=== PATIENT | male | born 1980 | race Two or more races ===

== ENCOUNTER 2025-01-19 14:01 | Emergency (ER) | payer OTHER ==
[~2025-01-19] VITALS: Ht 175.3 cm; Wt 72.7 kg
[2025-01-19 18:20] VITALS: BP 135/94; PULSE 70; RESP 17; TEMP 98.4; O2SAT 98
[2025-01-19] MEDS ORDERED: CLIN1CAP70 PO (18:34)
[2025-01-19] MEDS ORDERED: ACET500T58 PO (18:34)
--- NOTE | 2025-01-19 18:34 | ED.PDOC ---
HPI Comments 44 year old male presents to ER with complaints of laceration to right side of jaw x 1 day. Patient states he was attempting to step up onto a chair when the chair moved causing him to fall forward and hit the right side of his jaw against the leg of the chair and sustained laceration right side of jaw at 1 pm prior to arrival to ER. Denies head injury/LOC and denies any current pain. Patient presents to ER ambulatory on arrival, alert and oriented x4, with steady gait, in no distress and reports he is unsure when his last tetanus shot was. Denies headache, neck pain, numbness/tingling, shortness of breath or any further symptoms/complaints Chief Complaint: Laceration Time Seen by MD: 18:05 Primary Care Provider: UNKNOWN Reviewed Notes: Nurses Notes, Medications, Allergies Allergies: Coded Allergies: NO KNOWN ALLERGIES (Unverified , 01/19/25) Home Meds Active Scripts Acetaminophen (Acetaminophen) 500 Mg Tab, 500 MG PO Q4HPRN, #30 TAB 0 Refills Prov:ANGELY APARICIO 01/19/25 Clindamycin Hcl (Clindamycin Hcl) 300 Mg Cap, 300 MG PO QID for 7 Days, #28 CAP 0 Refills Prov:ANGELY APARICIO 01/19/25 Information Source: Patient Mode of Arrival: Ambulatory Complexity: Simple Last Tetanus: Unknown Laceration Length (cm): 5 Skin Type: Linear Past Medical History PAST MEDICAL HISTORY: CVA Surgical History: CABG Family History Family History: Unknown Social History Smoker: Non-Smoker Alcohol: Occasionally Drugs: Denies Drug Use Lives In: Home Constitutional: denies: chills, diaphoresis, fatigue, fever, malaise, sweats, weakness, others EENTM: reports: others (As stated in HPI) Respiratory: denies: cough, hemoptysis, orthopnea, SOB at rest, shortness of breath, SOB with excertion, stridor, wheezing, others Cardiovascular: denies: chest pain, dizzy spells, diaphoresis, Dyspnea on exertion, edema, irregular heart beat, left arm pain, lightheadedness, palpitations, PND, syncope, others Gastrointestinal: denies: abdomen distended, abdominal pain, blood streaked bowels, constipated, diarrhea, dysphagia, difficulty swallowing, hematemesis, melena, nausea, poor appetite, poor fluid intake, rectal bleeding, rectal pain, vomiting, others Genitourinary: denies: burning, dysuria, flank pain, frequency, hematuria, incontinence, penile discharge, penile sore, pain, testicle pain, testicle swelling, urgency, others Neurological: denies: dizziness, fainting, headache, left sided numbness, left sided weakness, numbness, paresthesia, pre-existing deficit, right sided numbness, right sided weakness, seizure, speech problems, tingling, tremors, weakness, others Musculoskeletal: denies: back pain, gout, joint pain, joint swelling, muscle pain, muscle stiffness, neck pain, others Integumetry: denies: bruises, change in color, change in hair/nails, dryness, laceration, lesions, lumps, rash, wounds, others Allergic/Immunocompromised: denies: Difficulty Healing, Frequent Infections, Hives, Itching, others Hematologic/Lymphatic: denies: anemia, blood clots, easy bleeding, easy bruising, swollen glands, others Endocrine: denies: excessive hunger, excessive sweating, excessive thirst, excessive urination, flushing, intolerance to cold, intolerance to heat, unexplained weight gain, unexplained weight loss, others Psychiatric: denies: anxiety, bipolar disorder, depression, hopeless, panic disorder, schizophrenia, sleepless, suicidal, others Physical Exam General Appearance: No Apparent Distress HEENT: Normal ENT Inspection, PERRL/EOMI, Pharynx Normal, TMs Normal, Other (6 cm laceration noted to right lower mandible with bleeding controlled. Slight TTP/swelling/erythema localized to wound edges. No foreign body/deformity/further skin changes noted. Patient able to open/close mouth without difficulty/pain) Neck: Full Range of Motion, Non-Tender, Normal Respiratory: Chest Non-Tender, Lungs Clear, No Accessory Muscle Use, No Respiratory Distress, Normal Breath Sounds Cardiovascular: No Murmur, No Gallop, Regular Rate/Rhythm Breast Exam: Deferred Gastrointestinal: NOT DONE Genitalia: Deferred Pelvic: Deferred Rectal: Deferred Extremities: Normal capillary refill, Normal range of motion Neurologic: Alert, director of catering II-XII nml as Tested, No Motor Deficits, Normal Affect, Normal Mood, No Sensory Deficits Cerebellar Function: Normal Reflexes: Normal Skin: Dry, Warm Lymphatic: No Adenopathy Was a procedure done? Was a procedure done?: Yes Sedation Sedation?: No Laceration Repair : Location Right lower mandible Length 6 cm Anesthetic: Lidocaine (1%), Without epi Laceration Repair Prep: Saline (and peroxide), by Irrigation (heavily irrigated without any signs of foreign body) Laceration Repair Wound Comple: epidermis/dermis repair Laceration Repair: Number of sutures (7 placed - patient tolerated well without any complication), Size (4-0), Nylon, Simple, Non-adherent gauze Informed consent obtained: Yes Risks, benefits, and alternati: Yes Differential diagnosis Generic Laceration: Fracture, Retained Foriegn Body, Neurovascular Injury, Avulsion Differential Diagnosis: Closed Head Injury X-Ray, Labs, Meds, VS Vital Signs Date Time Temp Pulse Resp B/P (MAP) Pulse Ox O2 Delivery O2 Flow Rate FiO2 01/19/25 19:32 70 17 98 Room Air 01/19/25 18:20 98.4 70 17 135/94 (108) 98 98.4 01/19/25 18:20 70 17 98 Room Air* 0 21 01/19/25 14:40 98.4 70 17 135/94 (108) 98 98.4 Current Medications Medications (Trade) Dose Ordered Sig/Sebastián Route Start Time Stop Time Status Last Admin Diphtheria/ Tetanus/Acell Pertussis (Boostrix T-Dap) 0.5 ml ONCE ONCE IM 01/19/25 18:30 01/19/25 18:31 DC 01/19/25 19:54 Ceftriaxone Sodium (Rocephin) 1,000 mg ONCE ONCE IM 01/19/25 18:30 01/19/25 18:31 DC 01/19/25 19:54 Lidocaine HCl (Xylocaine 1%) 2.1 ml ONCE ONCE IJ 01/19/25 19:45 01/19/25 19:46 DC 01/19/25 19:54 PATIENT: JAN CONWAYT: [id number] UNIT: [id number] : 1980 LOC: ER ROOM / BED: / AGE / SEX: 44 / M ADM STATUS: REG ER SERVICE 052 ORDERING PHYSICIAN: ANGELY APARICIO PROCEDURE(s): FACE2 - FACIAL BONES LIMITED REASON: right sided jaw pain/laceration ORDER NUMBER(s): [id number], ACCESSION NUMBER(s): [id number] EXAM: XY FACIAL BONES LIMITED CLINICAL INDICATION: right sided jaw pain/laceration TECHNIQUE: XY FACIAL BONES LIMITED Comparison: None FINDINGS/IMPRESSION: There is no evidence of acute fracture or dislocation. The visualized joint space is well maintained. The alignment is anatomical. There is no radiopaque foreign body. ATED BY: CHARMAINE PAGE MD DICTATED DATE/TIME: 01/19/251935 SIGNED BY: CHARMAINE PAGE MD SIGNED DATE/TIME: 01/19/251935 CC: Patient's facial bones x-ray reviewed Rocephin 1 g IM ordered Tdap 0.5 mL IM ordered Wound cleaning performed at bedside Wound care/cleaning discussed and advised Advised to follow up in two days for wound check Advised to follow up in 7 days for removal of sutures Advised to follow up with PCP in 1-2 days Patient alert and oriented x4 prior to discharge. Patient verbalized understanding and agreeable with current plan of care Advised to return to ER immediately if symptoms worsen Images Reviewed?: Images reviewed and evaluated by me Time of 1ST Reevaluation: 18:32 Reevaluation 1ST: N/A Time of 2ND Reevaluation: 19:58 Reevaluation 2ND: Improved Patient Education/Counseling: Diagnosis, Treatment, Prognosis, Need For Follow Up Family Education/Counseling: No Family Present Departure 1 Departure Time of Disposition: 20:00 Impression: Primary Impression: Laceration of jaw Qualified Codes: S01.81XA - Laceration without foreign body of other part of head, initial encounter Disposition: HOME / SELF CARE / HOMELESS Condition: Stable e-Prescriptions Acetaminophen (Acetaminophen) 500 Mg Tab 500 MG PO Q4HPRN, #30 TAB 0 Refills Prov: ANGELY APARICIO 01/19/25 Clindamycin Hcl (Clindamycin Hcl) 300 Mg Cap 300 MG PO QID for 7 Days, #28 CAP 0 Refills Prov: ANGELY APARICIO 01/19/25 Discharged With: Self Critical Care Note Critical Care Time?: No Stability Stability form required: No Heart Score Heart Score: Heart Score Response (Comments) Value History N/A 0 EKG N/A 0 Age N/A 0 Risk Factors N/A 0 Troponin N/A 0 Total 0 ANGELY APARICIO January 19, 2025 18:34
[2025-01-19 19:32] VITALS: PULSE 70; RESP 17; O2SAT 98
--- NOTE | 2025-01-19 19:39 | DVH ---
EXAM: XY FACIAL BONES LIMITED CLINICAL INDICATION: right sided jaw pain/laceration TECHNIQUE: XY FACIAL BONES LIMITED Comparison: None FINDINGS/IMPRESSION: There is no evidence of acute fracture or dislocation. The visualized joint space is well maintained. The alignment is anatomical. There is no radiopaque foreign body.
[2025-01-19] MEDS: LIDOCAINE 1% HCL (LOCAL ANESTH.) INJ 20ML MDV IJ ONE (19:54)
[2025-01-19] MEDS: TETANUS-DIPTH-ACEL PERTUSSIS 0.5ML SYR Tdap IM ONE (19:54)
[2025-01-19] MEDS: cefTRIAXone SOD 1,000 MG VL IM ONE (19:54)
== END 2025-01-19 20:14 | disposition home or self-care (01) ==
LOC: ER 14:05
DX: S01.81XA Laceration without foreign body of other part of head, initial encounter (principal); Z95.1 Presence of aortocoronary bypass graft; W07.XXXA Fall from chair, initial encounter; Y93.89 Activity, other specified; Y92.89 Other specified places as the place of occurrence of the external cause; Y99.8 Other external cause status
CPT/HCPCS: 12014; 70140; 90471; 90715; 96372; 99284; J0696; J2003

== ENCOUNTER 2025-02-11 05:48 | Emergency (ER) | payer OTHER ==
[~2025-02-11] VITALS: Ht 175.3 cm; Wt 100.0 kg
[~2025-02-11 05:48] MED LIST: ACET500T58 PO; CLIN1CAP70 PO
--- NOTE | 2025-02-11 07:10 | ED.PDOC ---
History of Present Illness HPI Comments This is a 44 year old male presenting to the ED with chief complaint of suture removal. Patient reports that he was seen on 01/19/25 for a laceration to his right jaw, having 7 sutures placed and was advised to return to have them removed. Patient denies any discharge, bleeding, or any further concerns. Chief Complaint: Suture Removal Time Seen by MD: 07:08 Primary Care Provider: UNKNOWN Reviewed Notes: Nurses Notes, Medications, Allergies Allergies: Coded Allergies: NO KNOWN ALLERGIES (Unverified , 01/19/25) Home Meds Active Scripts Acetaminophen (Acetaminophen) 500 Mg Tab, 500 MG PO Q4HPRN, #30 TAB 0 Refills Prov:ANGELY APARICIO 01/19/25 Clindamycin Hcl (Clindamycin Hcl) 300 Mg Cap, 300 MG PO QID for 7 Days, #28 CAP 0 Refills Prov:ANGELY APARICIO 01/19/25 Information Source: Patient Mode of Arrival: Ambulatory Severity: None Timing: Weeks Duration: Since onset Prehospital treatment: None Medication Refill: For: Other (Suture removal) Past Medical History PAST MEDICAL HISTORY: CVA Surgical History: CABG Family History Family History: Reviewed,noncontributory to illness, Unknown Social History Smoker: Non-Smoker Alcohol: Occasionally Drugs: Denies Drug Use Lives In: Home Constitutional: denies: chills, diaphoresis, fatigue, fever, malaise, sweats, weakness, others EENTM: denies: blurred vision, double vision, ear bleeding, ear discharge, ear drainage, ear pain, ear ringing, eye pain, eye redness, hearing loss, mouth pain, mouth swelling, nasal discharge, nose bleeding, nose congestion, nose pain, photophobia, tearing, throat pain, throat swelling, voice changes, others Respiratory: denies: cough, hemoptysis, orthopnea, SOB at rest, shortness of breath, SOB with excertion, stridor, wheezing, others Cardiovascular: denies: chest pain, dizzy spells, diaphoresis, Dyspnea on exertion, edema, irregular heart beat, left arm pain, lightheadedness, palpitations, PND, syncope, others Gastrointestinal: denies: abdomen distended, abdominal pain, blood streaked bowels, constipated, diarrhea, dysphagia, difficulty swallowing, hematemesis, melena, nausea, poor appetite, poor fluid intake, rectal bleeding, rectal pain, vomiting, others Genitourinary: denies: burning, dysuria, flank pain, frequency, hematuria, incontinence, penile discharge, penile sore, pain, testicle pain, testicle swelling, urgency, others Neurological: denies: dizziness, fainting, headache, left sided numbness, left sided weakness, numbness, paresthesia, pre-existing deficit, right sided numbness, right sided weakness, seizure, speech problems, tingling, tremors, weakness, others Musculoskeletal: denies: back pain, gout, joint pain, joint swelling, muscle pain, muscle stiffness, neck pain, others Integumetry: reports: others (Sutures to right jaw); denies: bruises, change in color, change in hair/nails, dryness, laceration, lesions, lumps, rash, wounds Allergic/Immunocompromised: denies: Difficulty Healing, Frequent Infections, Hives, Itching, others Hematologic/Lymphatic: denies: anemia, blood clots, easy bleeding, easy bruising, swollen glands, others Endocrine: denies: excessive hunger, excessive sweating, excessive thirst, excessive urination, flushing, intolerance to cold, intolerance to heat, unexplained weight gain, unexplained weight loss, others Psychiatric: denies: anxiety, bipolar disorder, depression, hopeless, panic disorder, schizophrenia, sleepless, suicidal, others All Other Systems: Reviewed and Negative Physical Exam General Appearance: No Apparent Distress, Normal HEENT: Normal ENT Inspection, Pharynx Normal, TMs Normal Neck: Full Range of Motion, Non-Tender, Normal, Normal Inspection Respiratory: Chest Non-Tender, Lungs Clear, No Accessory Muscle Use, No Respiratory Distress, Normal Breath Sounds Cardiovascular: No Edema, No JVD, No Murmur, No Gallop, Normal Peripheral Pulses, Regular Rate/Rhythm Breast Exam: Deferred Gastrointestinal: No Organomegaly, Non Tender, No Pulsatile Mass, Normal Bowel Sounds, Soft Genitalia: Deferred Pelvic: Deferred Rectal: Deferred Extremities: No calf tenderness, Normal capillary refill, Normal inspection, Normal range of motion, Non-tender, No pedal edema Musculoskeletal : Apperance: Normal Neurologic: Alert, artificial insemination technician II-XII nml as Tested, No Motor Deficits, Normal Affect, Normal Mood, No Sensory Deficits Cerebellar Function: Normal Reflexes: Normal Skin: Dry, Normal Color, Warm, Other ([address] to right jaw) Lymphatic: No Adenopathy Was a procedure done? Was a procedure done?: Yes Sedation Sedation?: No Other Procedure Procedure 4 sutures removed from right jaw with suture removal kit. Informed consent obtained: Yes Risks, benefits, and alternati: Yes Differential Dx Considerations may include: Suture removal X-Ray, Labs, Meds, VS Vital Signs Date Time Temp Pulse Resp B/P (MAP) Pulse Ox O2 Delivery O2 Flow Rate FiO2 02/11/25 05:48 97.1 54 18 132/80 (97) 99 97.1 Time of 1ST Reevaluation: 07:15 Reevaluation 1ST: Resolved Patient Education/Counseling: Diagnosis, Treatment Family Education/Counseling: No Family Present Additional Information Previous visits reviewed: 01/19/25 for laceration of jaw The following tests were ordered, and results were reviewed by me: None Additional Information was gathered from interviewing the following independent historians: None I reviewed and agreed with the following test results read by other providers: None I discussed treatment and results with medical personnel and: patient Comprehensive systems review obtained and negative except for what is stated in the HPI. Departure 1 Departure Time of Disposition: 07:20 (Patient had 4 seizures removed. I was unable to find 3 additional sutures that were documented prior procedure note. We will discharge patient home with outpatient follow up) Impression: Primary Impression: Visit for suture removal Disposition: 01 HOME / SELF CARE / HOMELESS Condition: Stable Additional Instructions: You had 4 sutures removed today. I can not find the other 3 sutures. You should follow up with the regular doctor within 1 week to ensure you are doing well. If your symptoms worsen or you find any additional 3 sutures then please return to the emergency room. Critical Care Note Critical Care Time?: No Stability Stability form required: No Heart Score Heart Score: Heart Score Response (Comments) Value History N/A 0 EKG N/A 0 Age N/A 0 Risk Factors N/A 0 Troponin N/A 0 Total 0 I personally scribed for KYLEIGH TRIPP MD ([email or web address]) on 02/11/25 at 07:10. Electronically submitted by Dung Meléndez ([email or web address]). I personally scribed for KYLEIGH TRIPP MD ([email or web address]) on 02/11/25 at 07:19. Electronically submitted by Dung Meléndez ([email or web address]). KYLEIGH TRIPP MD Feb 11, 2025 07:10
[2025-02-11 07:20] VITALS: BP 107/74; PULSE 62; RESP 16; TEMP 97.7; O2SAT 96
== END 2025-02-11 07:32 | disposition home or self-care (01) ==
LOC: ER 05:48
DX: S01.81XD Laceration without foreign body of other part of head, subsequent encounter (principal); Z48.02 Encounter for removal of sutures; Z86.73 Personal history of transient ischemic attack (TIA), and cerebral infarction without residual deficits; Z95.1 Presence of aortocoronary bypass graft; X58.XXXD Exposure to other specified factors, subsequent encounter